=== PATIENT | male | born 1980 | race Caucasian/White ===

== ENCOUNTER 2018-11-11 21:44 | Emergency (ER) | payer BC ==
[~2018-11-11] VITALS: Ht 182.9 cm; Wt 135.2 kg
[2018-11-11] MEDS ORDERED: CLONIDINE HCL 0.3 MG TAB PO ONE (22:00)
[2018-11-11] MEDS ORDERED: CLONIDINE HCL 0.2 MG TAB PO ONE (22:15)
[2018-11-11] MEDS ORDERED: HIBICLENS120 ML TOP (22:46)
[2018-11-11] MEDS ORDERED: CLINDAMYCIN HC300 MG PO (22:46)
[2018-11-11 23:22] VITALS: BP 178/117
== END 2018-11-11 23:31 | disposition home or self-care (01) ==
LOC: ER 21:44
DX: L02.01 Cutaneous abscess of face (principal); I10 Essential (primary) hypertension; E11.9 Type 2 diabetes mellitus without complications
CPT/HCPCS: 99283